=== PATIENT | female | born 1985 | race Caucasian/White ===

== ENCOUNTER 2021-10-18 11:01 | Emergency (ER) | payer SELFPAY ==
[~2021-10-18] VITALS: Ht 167.6 cm; Wt 68.0 kg
[2021-10-18 11:13] VITALS: BP 134/91
--- NOTE | 2021-10-18 12:10 | NUR ---
URINE COLLECTED AND SENT TO LAB
--- NOTE | 2021-10-18 12:24 | NUR ---
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
[2021-10-18] MEDS ORDERED: IBUP-1955 PO (13:16)
--- NOTE | 2021-10-18 13:46 | NUR ---
Patient discharged to home in stable condition. Written and verbal after care instructions given. Patient verbalizes understanding of instruction.
== END 2021-10-18 13:46 | disposition home or self-care (01) ==
LOC: ER 11:08
DX: M54.6 Pain in thoracic spine (principal); V49.49XA Driver injured in collision with other motor vehicles in traffic accident, initial encounter; Y93.89 Activity, other specified; Y92.413 State road as the place of occurrence of the external cause; Y99.8 Other external cause status
CPT/HCPCS: 71045-TC